=== PATIENT | male | born 1995 | race Caucasian/White ===

== ENCOUNTER 2016-12-21 01:43 | Inpatient (IN) | payer OTHER ==
[~2016-12-21] VITALS: Ht 185.4 cm; Wt 133.8 kg
--- NOTE | 2016-12-21 02:28 | NUR ---
REC'D A 21/M IN RM 7 WITH C/O RUQ PAIN X 4 HOURS. PT REPORTS NAUSEA. PT DESCRIBES THE PAIN INTERMITTENT, STAB-LIKE, AND NONRADIATING. HX OF GALLSTONES. PT AAOX4, RESP E/U. ON CM. CALL LIGHT WITHIN REACH, WILL CONTINUE TO MONITOR.
--- NOTE | 2016-12-21 02:29 | NUR ---
DR CASTANON AT BEDSIDE AT BEDSIDE.
--- NOTE | 2016-12-21 02:36 | NUR ---
MEDICATED PT FOR PAIN. PLEASE SEE EMAR.
[2016-12-21 02:50] LABS: BASOPHIL % 0.6 % (0-2); PLATELET COUNT 305 x10^3mcL (130-400); RED CELL DISTRIBUTION WIDTH 13.8 % (11.5-14.5)
[2016-12-21 02:53] LABS: CALCIUM 8.6 mg/dL (8.5-10.1); CARBON DIOXIDE 29.1 mmol/L (21-32); CHLORIDE SERUM 104 mmol/L (98-107); CREATININE SERUM 0.9 mg/dL (0.7-1.3); GFR1 > 60 mL/min; GLUCOSE SERUM 100 mg/dL (74-106); POTASSIUM SERUM 4.1 mmol/L (3.5-5.1); SODIUM SERUM 139 mmol/L (136-145)
--- NOTE | 2016-12-21 02:54 | NUR ---
US AT BEDSIDE.
[2016-12-21 02:58] LABS: ALBUMIN 3.8 g/dL (3.4-5.0); ALKALINE PHOSPHATASE 134 U/L (46-116); ALT/SGPT 38 U/L (16-63); AST/SGOT 18 U/L (15-37); LIPASE 102 IU/L (73-393); TOTAL PROTEIN, SERUM 7.3 g/dL (6.4-8.2)
--- NOTE | 2016-12-21 04:42 | NUR ---
REPORT GIVEN TO CARMEN BENÍTEZ TO ASSUME CARE OF THE PT.
[2016-12-21 04:57] LABS: CHOLESTEROL/HDL RATIO 4.8; MAGNESIUM 2.1 mg/dL (1.8-2.4); PHOSPHOROUS 4.8 mg/dL (2.5-4.9)
[2016-12-21 05:03] LABS: FREE T4 0.86 ng/dL (0.76-1.46); FREE THYROXINE INDEX 2.1 ug/dL (1.4-4.5); T4(THYROXINE) 6.1 ug/dL (4.7-13.3)
--- NOTE | 2016-12-21 05:16 | NUR ---
REC'D PT FROM ED VIA [facility] ACCOMPANIED BY NURSE AND MOTHER. PT AAOX4, SPEECH CLAR, FOLLOWS COMMANDS. NO SIGNS OF DISTRESS NOTED. TELE 34, SB WITH ELEVATED T WAVE. HR 55. DENIES CP, DIZZINESS, OR PALPITATIONS. PERIPHERAL PULSES PALPABLE. NO EDEMA NOTED. ABD SOFT/ROUND. BOWEL SOUNDS ACTIVE. DENIES ABD PAIN OR N/V. MEDICATED IN ED WITH MORPHINE AND TORADOL. REPORTS TENDERNESS TO RUQ WITH PALPATION. VOIDING FREELY. UA TO BE COLLECTED. AMBULATORY. SKIN INTACT. IV TO LAC PATENT AND INFUSING FLAGYL @ 100 ML/HR. SITE WNL. ORIENTED TO DEVICES AND SURROUNDINGS. CALL LIGHT WITHIN REACH, BED AT LOWEST POSITION. MOTHER AT BEDSIDE. WILL ENDORSE TO DAY NURSE.
[2016-12-21 05:20] VITALS: BP 119/51
[2016-12-21 05:22] LABS: T3 TOTAL 1.2 ng/mL
--- NOTE | 2016-12-21 07:40 | NUR ---
REASSESSMENT DONE. PT DENIES PAIN AT MOMENT. NO NAUSEA, VOMITING. REPORTS COMFORT. IV INFUSING WELL TO LAC #20. CALL LIGHT WITHIN REACH. PARENT AT BEDSIDE.
[2016-12-21 08:57] VITALS: BP 122/50
[2016-12-21 13:14] VITALS: BP 123/54
--- NOTE | 2016-12-21 13:25 | NUR ---
PT SEEN BY SURGEON FOR POSSIBLE SURGERY ON 12/22/16. SURGEON EXPLAINING PLANNED PROCEDURE, MOTHER AT BEDSIDE.
[2016-12-21 16:51] LABS: microscopic required? NO
--- NOTE | 2016-12-21 17:10 | NUR ---
CONSENT TO SURGERY WITNESSED, PT VERBALIZED UNDERSTANDING FOR PROCEDURE.
[2016-12-21 17:12] LABS: UA SPECIFIC GRAVITY >=1.030 (1.005-1.035); urine erythrocyte NEGATIVE (NEGATIVE)
[2016-12-21 17:21] LABS: AMPHETAMINE QUAL UR NONE DETECTED (NEG <=1000)
[2016-12-21 17:40] VITALS: BP 140/50
--- NOTE | 2016-12-21 18:10 | NUR ---
PT SITTING AT BEDSIDE CHAIR. DENIES PAIN AT MOMENT. EFFORTLESS BREATHING. CALL LIGHT WITHIN REACH.
--- NOTE | 2016-12-21 19:36 | NUR ---
RECEIVED PT FROM PREVIOUS SHIFT. AAOX4. TELE #34. DENIES CP/PRESSURE AT THIS TIME. PULSES STRONG BILAT. NO EDEMA NOTED. LUNG SOUNDS CTA. DENIES SOB ON RA. BOWEL SOUNDS ACTIVE X4. PT AMBULATORY. SKIN CDI. IV TO LAC. PATENT AND INTACT. INFUSING WELL. NS @50ML/HR. NO PAIN INDICATED AT THIS TIME. BED IN LOWEST POSITION. CALL LIGHT WITHIN REACH. WILL CONTINUE TO MONITOR.
--- NOTE | 2016-12-21 20:41 | NUR ---
PM SCHEDULED MEDS ADMINISTERED. PT TOLERATED WELL. RESTING IN BED. NO S/S OF DISTRESS. RESPIRATIONS EVEN AND UNLABORED. CALL LIGHT WITHIN REACH. WILL CONTINUE TO MONITOR
[2016-12-21 22:00] VITALS: BP 124/63
--- NOTE | 2016-12-22 01:14 | NUR ---
PT PEACEFULLY RESTING IN BED. RESPIRATIONS EVEN AND UNLABORED. NO S/S OF RESP DISTRESS OR PAIN. IV INFUSING WELL. WILL CONTINUE TO MONITOR.
[2016-12-22 05:44] VITALS: BP 116/42
[2016-12-22 06:25] LABS: BASOPHIL % 0.6 % (0-2); PLATELET COUNT 270 x10^3mcL (130-400); RED CELL DISTRIBUTION WIDTH 13.7 % (11.5-14.5)
[2016-12-22 06:50] LABS: CALCIUM 8.6 mg/dL (8.5-10.1); CHLORIDE SERUM 105 mmol/L (98-107); CREATININE SERUM 0.8 mg/dL (0.7-1.3); GFR1 > 60 mL/min; GLUCOSE SERUM 95 mg/dL (74-106); POTASSIUM SERUM 4.2 mmol/L (3.5-5.1); SODIUM SERUM 142 mmol/L (136-145)
--- NOTE | 2016-12-22 06:54 | NUR ---
PT RESTING PEACEFULLY IN BED. RESPIRATIONS EVEN AND UNLABORED. NO PAIN INDICATED. IV TO LAC PATENT AND INTACT. INFUSING WELL. WILL ENDORSE CARE TO ONCOMING SHIFT
--- NOTE | 2016-12-22 07:00 | NUR ---
PT IS SLEEPING VERY COMFORTABLE. TELE 34. BREATHING EVEN AND UNLABORED. NO RESP DISTRESS OR SOB NOTED. LUNGS CLEAR ON RA. IV TO THE LAC 20G , PATENT AND INTACT. CALL LIGHT IN REACH. WILL CONTINUE PLAN OF CARE.
[2016-12-22 09:36] VITALS: BP 123/61
--- NOTE | 2016-12-22 11:02 | NUR ---
HEPLOCKED PT. VS STABLE. PT BREATHING EVEN AND UNLABORED, NO RESP DISTRESS OR SOB NOTED. PT TAKEN FOR PROCEDURE.
--- NOTE | 2016-12-22 14:10 | NUR ---
PT BACK FROM PROCEDURE. AA/OX4 VS: BP 135/53, 68HR. 18 RESP. TEMP 99.0,. BREATHING EVEN AND UNLABORED. NO RESP DISTRESS OR SOB NOTED. DENIES ANY ABD DISCOMFORT AT TIME. 4 ABD INCISIONS AND 4 BANDAIDS INTACT. RECONNECTED PT TO IV TO THE LAC AT 50 ML/HR. WILL CONTINUE PLAN OF CARE AND MONITOR PT PAIN.
--- NOTE | 2016-12-22 15:31 | NUR ---
PT C/O ABD PAIN 11/01. WILL MEDICATED PER EMAR.
[2016-12-22 17:05] VITALS: BP 126/57
--- NOTE | 2016-12-22 17:29 | NUR ---
PT WAS ABLE TO GET OUT OF BED AND WALK TO THE ELEVATOR AND BACK. PT MOM AND DAD ASSISTED. PT TOLERATED THE WALK WELL.
--- NOTE | 2016-12-22 18:30 | NUR ---
PT IS LAYING IN BED WITH HIS FATHER BY HIS SIDE. PT IS BREATHING EVEN AND UNLABORED ON 2L NC FOR COMFORT. NO RESP DISTRESS OR SOB NOTED. PT IS C/O OF SOME ABD PAIN, WILL MEDICATE PER EMAR. VS STABLE. WILL ENDORSE PT TO INCOMING NURSE.
--- NOTE | 2016-12-22 19:55 | NUR ---
PT CURRENTLY RESTING IN BED, NO ACUTE DISTRESS. A/O X4. TELE #34 SHOWING SINUS RHYTHM, DENIES CHEST PAIN. PULSES PALPABLE IN ALL EXTREMITIES, NO EDEMA NOTED. LUNG SOUNDS CTA BILATERALLY, DENIES SOB. BOWEL SOUNDS ACTIVE, LAST BM 12/20/16. VOIDING WELL. AMBULATORY. ABD BANDAID X4, CDI. C/O ABD PAIN 08/31, WILL MEDICATE PER EMAR. IV PATENT AND INTACT. BED IN LOWEST POSITION, SIDE RAILS UP X2, SCDS IN PLACE, CALL LIGHT WITHIN REACH. WILL CONTINUE TO MONITOR.
[2016-12-22 21:07] VITALS: BP 148/69
--- NOTE | 2016-12-22 23:54 | NUR ---
PT CURRENTLY RESTING IN BED, NO ACUTE DISTRESS. WILL CONTINUE TO MONITOR.
--- NOTE | 2016-12-23 05:40 | NUR ---
PT SLEPT PERIODICALLY THROUGHOUT NIGHT, NO ACUTE DISTRESS. ALL NEEDS MET AND ATTENDED TO. NO SIGNIFICANT CHANGES. IV PATENT AND INTACT. MEDICATED PAIN PER EMAR. BED IN LOWEST POSITION, SIDE RAILS UP X2, SCDS IN PLACE, CALL LIGHT WITHIN REACH. WILL ENDORSE CARE TO ONCOMING NURSE.
[2016-12-23 06:01] VITALS: BP 129/67
[2016-12-23 06:06] LABS: BASOPHIL % 0.2 % (0-2); PLATELET COUNT 296 x10^3mcL (130-400); RED CELL DISTRIBUTION WIDTH 13.5 % (11.5-14.5)
[2016-12-23 06:18] LABS: CALCIUM 8.4 mg/dL (8.5-10.1); CARBON DIOXIDE 28.3 mmol/L (21-32); CHLORIDE SERUM 103 mmol/L (98-107); GFR1 > 60 mL/min; GLUCOSE SERUM 105 mg/dL (74-106); MAGNESIUM 2.1 mg/dL (1.8-2.4); PHOSPHOROUS 5.4 mg/dL (2.5-4.9); POTASSIUM SERUM 4.2 mmol/L (3.5-5.1); SODIUM SERUM 140 mmol/L (136-145)
--- NOTE | 2016-12-23 07:20 | NUR ---
RECEIVED PT IN BED, A/A/O X 4, CALM, COOPERATIVE. ON TELE # 34, SB WITH ELEVATED T-WAVES, HR 58. NO RESPIRATORY DISTRESS, PAIN, OR DISCOMFORT NOTED. ABD SOFT, ROUND, NON-TENDER, NORMOACTIVE BOWEL SOUNDS X 4 QUADS, LAST BM 12/20/16. HAS 4 SURGICAL WOUNDS COVERED WITH BAND-AIDS, CDI. IV SITE TO LAC CDI, RUNNING NS 50 ML/HR. SIDE RAILS UP X 2, BED IN LOW POSITION, CALL LIGHT WITHIN REACH. WILL CONTINUE TO MONITOR.
--- NOTE | 2016-12-23 08:00 | NUR ---
DR RANDLE, RESIDENTS, CHARGE NURSE, AND ASSIGNED NURSE CAME IN TO SEE PT, MOTHER BY BEDSIDE; DR DISCUSSED PLAN OF CARE FOR TODAY, INCLUDING POSSIBLE DISCHARGE HOME TOMORROW. ALL QUESTIONS ANSWERED, PT AND MOTHER VERBALIZED UNDERSTANDING.
[2016-12-23 09:16] VITALS: BP 118/52
--- NOTE | 2016-12-23 09:40 | NUR ---
PT C/O ABD PAIN 08/31, NAUSEA; GIVEN TORADOL 15MG IVP AND ONDANSETRON IVP; RECHECKED BP. 127/61.
[2016-12-23 09:41] VITALS: BP 127/61
--- NOTE | 2016-12-23 11:30 | NUR ---
PT IN BED, WATCHING TV, MOTHER BY BEDSIDE. NO RESPIRATORY DISTRESS, PAIN, OR DISCOMFORT NOTED. WILL CONTINUE TO MONITOR.
[2016-12-23 12:31] VITALS: BP 127/51
--- NOTE | 2016-12-23 13:20 | NUR ---
PT AMBULATED ALONG THE HALLWAY FOR ABOUT 200 FEET. NO RESPIRATORY DISTRESS, PAIN, OR DISCOMFORT NOTED. GAIT AND BALANCE IS UNIMPAIRED. WILL CONTINUE TO MONITOR.
--- NOTE | 2016-12-23 15:40 | NUR ---
PT IN BED, RESTING COMFORTABLY, MOTHER BY BEDSIDE. NO RESPIRATORY DISTRESS, PAIN, OR DISCOMFORT NOTED. WILL CONTINUE TO MONITOR.
[2016-12-23 17:25] VITALS: BP 139/50
--- NOTE | 2016-12-23 17:40 | NUR ---
PT AMBULATED THE HALLWAY FOR ABOUT 200 FT, ACCOMPANIED BY MOTHER. NO RESPIRATORY DISTRESS, PAIN, OR DISCOMFORT. GAIT AND BALANCE UNIMPAIRED. WILL ENDORSE TO NOC SHIFT.
--- NOTE | 2016-12-23 19:51 | NUR ---
AWAKE AND VERBALLY RESPONISVE. ABLE TO MAKE NEEDS KNOWN. DENIES ANY PAIN/DISCOMFORT AT THIS TIME. FAMILY AT BEDSIDE VERY SUPPORTIVE OF PATIENT'S PLAN OF CARE. ENCOURAGED TO CONTINUE TU USE IS QHR X10 , PATIENT COOPERATIVE PLACED CALL LIGHT WITHIN REACH, INSTRUCTED TO CALL FOR ANY ASSISTANCE NEEDED AND VERBALIZED UNDERSTANDING.
[2016-12-23 21:08] VITALS: BP 134/62
--- NOTE | 2016-12-24 00:10 | NUR ---
EYES CLSOED, NO FACIAL GRIAMCING NOTED. RESPRIATION EVEN AND UNLABORED. CALL LIGHT WITHIN REACH. BED IN LOWEST POSITION. KEPT CLEAN AND DRY. WILL CONTINUE TO MONITOR.
[2016-12-24 05:30] VITALS: BP 129/69
[2016-12-24 06:14] LABS: BASOPHIL % 0.3 % (0-2); PLATELET COUNT 252 x10^3mcL (130-400); RED CELL DISTRIBUTION WIDTH 13.8 % (11.5-14.5)
--- NOTE | 2016-12-24 06:31 | NUR ---
C/O SEVERE PAIN AT 0530 ON SCALE 8/10, DILAUDID 2MG GIVEN IVP SCHEDULED MDICATION, TOLERATING WELL. PATIENT CLAIMED TOTLA RELIEF POST PAIN MEDICATION. PAIN LEVEL 0/10.APPARENTLY COMFORTABLE IN BED AT THIS TIME. ALL NEEDS ATTENDED.
[2016-12-24 06:40] LABS: CALCIUM 8.4 mg/dL (8.5-10.1); CARBON DIOXIDE 30.3 mmol/L (21-32); CHLORIDE SERUM 106 mmol/L (98-107); CREATININE SERUM 0.8 mg/dL (0.7-1.3); GFR1 > 60 mL/min; GLUCOSE SERUM 90 mg/dL (74-106); POTASSIUM SERUM 4.2 mmol/L (3.5-5.1); SODIUM SERUM 144 mmol/L (136-145)
--- NOTE | 2016-12-24 07:15 | NUR ---
AAO X4.DENIES ANY PAIN/DISCOMFORT.LUNGS CLEAR.ON SR-SB ON THE MONITOR.IVF NS GOING AT 50 ML/HR INFUSING WELL.ABD'L INCISSION X3 WITH JACKIE OPEN TO AIR.S/P LAP PEREZ.BOWEL SOUNDS ACTIVE.CLAIMS BEEN PASSING GAS BUT NO BM YET.CALL LIGHT WITHIN REACH.INSTRUCTED TO CALL FOR ANY PAIN/DISCOMFORT.WILL CONTINUE TO MONITOR PT.
--- NOTE | 2016-12-24 08:20 | NUR ---
AND MEDICINE TEAM AT BEDSIDE.INFORMED PT ABOUT THE PLAN OF CARE.PT WILL GO HOME TODAY AND TO FOLLOW-UP WITH THE SURGEON.
[2016-12-24 08:50] VITALS: BP 122/49
[2016-12-24] MEDS ORDERED: APAP/HYDROCODON1 T13 PO (11:54)
[2016-12-24 11:57] VITALS: BP 122/49
--- NOTE | 2016-12-24 12:19 | NUR ---
PT C/O BRONSON 07/01, MEDICATED WITH TYLENOL PO ORDERED. PT ASSITED TO BR AT THIS TIME.
--- NOTE | 2016-12-24 13:22 | NUR ---
PT D/C TO HOME.IV AND MONITOR D/C'D.RX AND D/C INSTRUCTION GIVEN.PT VERBALIZES UNDERSTANDING.AWAIITNG FOR ANGEL TO COME LARD TUB WASHER PT.
--- NOTE | 2016-12-24 14:27 | NUR ---
MOTHER HERE TO FINE ARTS TEACHER PT.WENT DOWN VIA WHEELCHAIR ACOMPANIED BY MOTHER AND DIESEL SCOOP OPERATOR.
== END 2016-12-24 14:31 | disposition home or self-care (01) | DRG 263 ==
LOC: ED 01:43 → DU 04:08
PROVIDERS: Emergency Medicine; Surgery; ADMIT Family Medicine
PROC: 0FT44ZZ Resection of Gallbladder, Percutaneous Endoscopic Approach (ICD-10-PCS; principal; 2016-12-22 12:50)
DX: K80.00 Calculus of gallbladder with acute cholecystitis without obstruction (principal); E83.39 Other disorders of phosphorus metabolism; E78.2 Mixed hyperlipidemia; E83.51 Hypocalcemia; E66.9 Obesity, unspecified; D72.829 Elevated white blood cell count, unspecified
CPT/HCPCS: 83880; 84439; J0330; J0690; J0696; J1170; J1885; J2250; J2270; J2405; J2704; J2710; J3010; J3490; J7030; J7120; Q0092

== ENCOUNTER 2016-12-29 16:18 | Inpatient (IN) | payer OTHER ==
[~2016-12-29] VITALS: Ht 185.4 cm; Wt 127.5 kg
[~2016-12-29 16:18] MED LIST: APAP/HYDROCODON1 T13 PO
--- NOTE | 2016-12-29 16:55 | NUR ---
PT TO WAIT IN LOBBY DUE TO NO BEDS AVAILIBLE AT THIS TIME. PT IN STABLE CONDITION. RESP EVEN AND UNLABORED, RA. VS STABLE.
--- NOTE | 2016-12-29 17:46 | NUR ---
PT BIB FAMILY C/C ABD PAIN WITH NAUSEA STS PAIN STARTED THIS AM STS WAS SEEN BY PMD THIS AM AND WAS GIVEN RX FOR PO ATB PAIN MEDS STS STARTED MEDS AT 2PM AWAITING FOR DR MIA QUEZADA
--- NOTE | 2016-12-29 18:46 | NUR ---
PLEASE ENTER FULL NAMES OF BROACH TROUBLE SHOOTER/RN Patient data collected by (BROACH TROUBLE SHOOTER):TALIB DOE Assessment reviewed and completed by (RN):ROCIO CUI
--- NOTE | 2016-12-29 18:48 | NUR ---
PURPLE SEPSIS CHECKLIST INITIATED.
[2016-12-29 19:09] LABS: BASOPHIL % 0.6 % (0-2); PLATELET COUNT 312 x10^3mcL (130-400); RED CELL DISTRIBUTION WIDTH 13.4 % (11.5-14.5)
[2016-12-29 19:11] LABS: UA SPECIFIC GRAVITY 1.025 (1.005-1.035); microscopic required? YES; urine erythrocyte 2+ (NEGATIVE)
[2016-12-29 19:17] LABS: CALCIUM 8.7 mg/dL (8.5-10.1); CARBON DIOXIDE 28.9 mmol/L (21-32); CHLORIDE SERUM 101 mmol/L (98-107); CREATININE SERUM 0.9 mg/dL (0.7-1.3); GFR1 > 60 mL/min; GLUCOSE SERUM 99 mg/dL (74-106); POTASSIUM SERUM 4.1 mmol/L (3.5-5.1); SODIUM SERUM 138 mmol/L (136-145)
[2016-12-29 19:22] LABS: ALBUMIN 3.7 g/dL (3.4-5.0); ALKALINE PHOSPHATASE 105 U/L (46-116); ALT/SGPT 45 U/L (16-63); AMYLASE 32 U/L (25-115); AST/SGOT 13 U/L (15-37); BILIRUBIN TOTAL 0.93 mg/dL (0.20-1.00); LIPASE 81 IU/L (73-393); TOTAL PROTEIN, SERUM 7.9 g/dL (6.4-8.2)
[2016-12-29 19:24] LABS: AMPHETAMINE QUAL UR NONE DETECTED (NEG <=1000)
[2016-12-29] MEDS ORDERED: KEFLEX500 M1 (19:37)
[2016-12-29] MEDS ORDERED: ZOFRAN8 MG (19:38)
[2016-12-29] MEDS ORDERED: CODEINE (19:40)
[2016-12-29] MEDS ORDERED: APAP (19:40)
--- NOTE | 2016-12-29 19:57 | NUR ---
RESIDENT AT BS FOR ADMIT EXAM. PT VERB ACCEPTABLE LEVEL OF COMFORT ALTHOUGH MOVEMENT VERY GUARDED. 6CM HORIZONTAL INCISION W/JACKIE NOTED. NO DRAINAGE OR REDNESS. MRSA SWAB OBTAINED. PENDING TRANSPORT TO UNIT.
--- NOTE | 2016-12-29 20:26 | NUR ---
REC'D PT FROM ER VIA [facility]. PT IS AAOX4. TELE #15 SR. RESP EVEN AND UNLABORED. NO SOB NOTED. ABD SOFT. BS ACTIVE X4. DENIES ABD PAIN OR N/V. 4X INCISION WITH JACKIE NOTED TO ABD. PT HAD LAP APPY 1 WK AGO. IV NOTED TO RAC. INTACT AND PATENT. ORIENTED PT TO CALL LIGHT. BED IN LOWEST POSITION. WILL ENDORSE TO PRIMARY RN.
[2016-12-29 20:35] VITALS: BP 128/56
[2016-12-29 20:57] LABS: T3 TOTAL 0.86 ng/mL
[2016-12-29 21:00] LABS: FREE T4 1.09 ng/dL (0.76-1.46); FREE THYROXINE INDEX 2.7 ug/dL (1.4-4.5); T4(THYROXINE) 7.4 ug/dL (4.7-13.3)
[2016-12-29 21:07] LABS: MAGNESIUM 2.1 mg/dL (1.8-2.4); PHOSPHOROUS 4.6 mg/dL (2.5-4.9)
[2016-12-29 21:09] LABS: CHOLESTEROL/HDL RATIO 3.4
[2016-12-29 21:32] VITALS: BP 128/56
--- NOTE | 2016-12-30 04:08 | NUR ---
PT HAS FEVER 100.8, TYLENOL IS GIVEN AND APPLIED THE COOLING MEASURE, DR. HERR MADE AWARE, WILL CONTINUE TO MONITOR THE PT.
--- NOTE | 2016-12-30 05:19 | NUR ---
PT IS AWAKE AND VERBAL RESPONSIVE, DENY ANY RESPIRATORY DISTRESS, DENY ANY PAIN AT THIS MOMENT. IV AT RIGHT AC, NO LEAKING, NO INFILTRAITON. WILL CONTINUE TO MONITOR THE PT.
[2016-12-30 05:24] VITALS: BP 135/54
--- NOTE | 2016-12-30 06:00 | NUR ---
PT'S TEMP IS 99.7, CONTINUE ON COOLING MEASURE AND WILL CONTINUE TO MONITOR.
--- NOTE | 2016-12-30 06:50 | NUR ---
TALKED TO DR. HERR REGARDING REQUEST BLOOD CULTURE, DR. HERR MADE AWARE WILL CONTINUE TO MONITOR THE PT.
--- NOTE | 2016-12-30 07:35 | NUR ---
PT LAYING IN BED, A/OX4. NO REPORT OF PAIN. NO SIGN OF ACUTE DISTRESS. MOTHER AT BEDSIDE. ABDOMINAL INCISIONS VY, NO DRAINAGE, NO REPORT OF PAIN AT SITES. S1S2 REGULAR RATE/RHYTHM. LUNGS CTA BILATERALLY ON ROOM AIR. BOWEL SOUNDS ACTIVE. BED IN LOW POSITION. IV FLUIDS FLOWING. CALL LIGHT WITHIN REACH. WILL CONTINUE TO MONITOR.
[2016-12-30 08:40] VITALS: BP 130/63
--- NOTE | 2016-12-30 12:05 | NUR ---
PT LAYING IN BED. NO REPORT OF PAIN. NO SIGN OF ACUTE DISTRESS. IV FLUIDS FLOWING. BED IN LOW POSITION. CALL LIGHT WITHIN REACH. WILL CONTINUE TO MONITOR.
[2016-12-30 12:45] VITALS: BP 117/49
--- NOTE | 2016-12-30 13:53 | NUR ---
PT TAKEN TO RADIOLOGY. NO REPORT OF PAIN. NO SIGN OF ACUTE DISTRESS.
[2016-12-30 16:18] VITALS: BP 120/67
--- NOTE | 2016-12-30 18:49 | NUR ---
PT LAYING IN BED. A/OX4. NO REPORT OF PAIN. NO SIGN OF ACUTE DISTRESS. FAMILY AT BEDSIDE. IV REMOVED, CATHETER IN TACT. IV INSERTED TO RH 20 GAUGE. IV FLUIDS FLOWING. BED IN LOW POSITION. CALL LIGHT WITHIN REACH. WILL ENDORSE TO ONCOMING SHIFT.
--- NOTE | 2016-12-30 19:06 | NUR ---
AOX4. FAMILY AT BEDSIDE. TELE #15, NSR. LUNGS CLEAR ON RA. PULSES PALPABLE, NO EDEMA. BOWEL SOUNDS ACTIVE. 4 ABD INCISIONS NOTED, JACKIE VY. NO REDNESS OR SWELLING. DENIES PAIN AT THIS TIME. NS @ 100 ML/HR TO RIGHT HAND. BED IN LOW POSITION, CALL LIGHT IN REACH. INSTRUCTED TO CALL FOR ASSSITANCE.
--- NOTE | 2016-12-30 19:10 | NUR ---
NURSING CO-SIGN THE DOCUMENTATION ENTERED BY THE RN MANDEEP HAS BEEN REVIEWED. REVIEWED/CO-SIGNED BY: Corry Casillas DOCUMENTATION DONE BY:AKUA NAPIER
[2016-12-30 21:02] VITALS: BP 147/76
[2016-12-31 05:04] VITALS: BP 126/65
[2016-12-31 06:04] LABS: BASOPHIL % 0.3 % (0-2); PLATELET COUNT 278 x10^3mcL (130-400); RED CELL DISTRIBUTION WIDTH 13.7 % (11.5-14.5)
[2016-12-31 06:18] LABS: CALCIUM 8.7 mg/dL (8.5-10.1); CARBON DIOXIDE 28.5 mmol/L (21-32); CHLORIDE SERUM 106 mmol/L (98-107); CREATININE SERUM 0.9 mg/dL (0.7-1.3); GFR1 > 60 mL/min; GLUCOSE SERUM 85 mg/dL (74-106); POTASSIUM SERUM 3.9 mmol/L (3.5-5.1); SODIUM SERUM 142 mmol/L (136-145)
--- NOTE | 2016-12-31 06:39 | NUR ---
PT TRANSFERRED FROM OBSERVATION TO INPATIENT. NO ACUTE CHANGES DURING SHIFT. WILL ENDORSE TO ONCOMING RN.
--- NOTE | 2016-12-31 07:45 | NUR ---
PATIENT LAYING IN BED, A/OX4. MOTHER AT BEDSIDE. NO REPORT OF PAIN. NO SIGN OF ACUTE DISTRESS. BOWEL SOUNDS ACTIVE, PASSING GAS. NO REPORT OF ABDOMINAL PAIN. ABDOMEN SOFT, FLAT, NON-DISTENDED. 4 ABDOMINAL INCISIONS WITH JACKIE VY, NO DRAINAGE, NO FOUL ODOR, NO REPORT OF PAIN AT SITES. S1S2 REGULAR RATE/RHYTHM. LUNG SOUNDS CTA BILATERALLY ON ROOM AIR. IV FLUIDS FLOWING. BED IN LOW POSITION. CALL LIGHT WITHIN REACH. WILL CONTINUE TO MONITOR.
--- NOTE | 2016-12-31 09:00 | NUR ---
AM ROUNDS DONE BY DR. RIGGINS AND MEDICAL TEA,. PLAN TO CONT. WITH CURRENT ANTIBIOTIC TX. PT AGREED WITH PLAN.
[2016-12-31 09:17] VITALS: BP 135/67
--- NOTE | 2016-12-31 11:48 | NUR ---
PT LAYING IN BED. A/OX4. NO REPORT OF PAIN. NO SIGN OF ACUTE DISTRESS. IV FLUIDS FLOWING. BED IN LOW POSITION. CALL LIGHT WITHIN REACH. WILL CONTINUE TO MONITOR.
[2016-12-31 13:20] VITALS: BP 120/61
[2016-12-31 17:12] VITALS: BP 123/69
--- NOTE | 2016-12-31 18:05 | NUR ---
PATIENT LAYING IN BED. AMBULATED IN HALLWAY. TOLERATED ACTIVITY WELL. NO SOB. A/OX4. SHOWERED PER DR. MENDOZA'S ORDER. NO REPORT OF PAIN. NO SIGN OF ACUTE DISTRESS. NO COMPLAINT OF ABDOMINAL PAIN. INCISIONAL WOUNDS WITH JACKIE TO ABDOMEN CLEAN AND DRY. NO FOUL DRAINAGE. IV FLUIDS FLOWING. BED IN LOW POSITION. CALL LIGHT WITHIN REACH. WILL ENDORESE TO ONCOMING SHIFT.
--- NOTE | 2016-12-31 18:47 | NUR ---
NURSING CO-SIGN THE DOCUMENTATION ENTERED BY THE RN MANDEEP HAS BEEN REVIEWED. REVIEWED/CO-SIGNED BY: Corry Casillas DOCUMENTATION DONE BY:NURA FATIMA
[2016-12-31 21:41] VITALS: BP 130/70
--- NOTE | 2016-12-31 22:33 | NUR ---
PT C/O PAIN TO RIGHT FA IV. IV D/C INTACT. NEW ACCESS ESTABLISHED TO RIGHT HAND, 20G.
--- NOTE | 2016-12-31 22:49 | NUR ---
PT C/O PAIN TO RIGHT FA IV. IV D/C INTACT. NEW ACCESS ESTABLISHED TO LEFT HAND, 20G.
[2017-01-01 05:47] VITALS: BP 113/61
--- NOTE | 2017-01-01 06:05 | NUR ---
NO ACUTE CHANGES DURING SHIFT. WILL ENDORSE TO ONCOMING RN.
[2017-01-01 06:21] LABS: CALCIUM 8.8 mg/dL (8.5-10.1); CARBON DIOXIDE 29.4 mmol/L (21-32); CHLORIDE SERUM 106 mmol/L (98-107); CREATININE SERUM 0.8 mg/dL (0.7-1.3); GFR1 > 60 mL/min; GLUCOSE SERUM 86 mg/dL (74-106); POTASSIUM SERUM 4.3 mmol/L (3.5-5.1); SODIUM SERUM 143 mmol/L (136-145)
[2017-01-01 06:39] LABS: BASOPHIL % 0.4 % (0-2); PLATELET COUNT 301 x10^3mcL (130-400); RED CELL DISTRIBUTION WIDTH 13.1 % (11.5-14.5)
--- NOTE | 2017-01-01 07:15 | NUR ---
AAO X4.DENIES ANY PAIN/DISCOMFORT.LUNGS CLEAR.PT NON-TELE.IVF NS GOING AT 100 ML/HR INFUSING WELL.ABD'L INCISSION X4 WITH JACKIE CDI.S/P LAP PEREZ ON 12/22.CALL LIGHT WITHIN REACH.INSTRUCTED TO CALL FOR ANY PAIN/DISCOMFORT.WILL CONTINUE TO MONITOR PT.
--- NOTE | 2017-01-01 08:13 | NUR ---
AND MEDICINE TEAM AT BEDSIDE.INFORMED PT ABOUT THE PLAN OF CARE.WILL GO HOME TODAY.SO FAR PT HAS HAD NO FEVER AND LABS WERE OK.WILL BE ON ANTIBIOTICSFOR 7-10 DAYS.WILL REPEAT.US ABD.
[2017-01-01 09:50] VITALS: BP 139/77
[2017-01-01] MEDS ORDERED: FLA500 PO (09:57)
[2017-01-01] MEDS ORDERED: LAC PO (09:58)
[2017-01-01] MEDS ORDERED: LEVOFLOXACIN500 M1 PO (09:59)
[2017-01-01 11:04] VITALS: BP 139/77
--- NOTE | 2017-01-01 14:04 | NUR ---
TOOK JACKIE OFF PT'S INCISSION ORDERED BY .PT TOLERATED IT WELL.
--- NOTE | 2017-01-01 15:15 | NUR ---
PT D/C TO HOME .IV D/C'D.DISCHARGE INSTRUCTION GIVEN PT VERBALIZES UNDERSTANDING.WENT DOWN VIA WHEELCHAIR ACCOMPANIED BY MOM AND SECOND WORKER.
== END 2017-01-01 17:00 | disposition home or self-care (01) | DRG 721 ==
LOC: ED 16:18 → DU 18:58 → MU 01-01 05:44
PROVIDERS: Emergency Medicine; ADMIT Family Medicine Sports Medicine
DX: T81.4XXA Infection following a procedure, initial encounter (principal); A41.9 Sepsis, unspecified organism; K29.80 Duodenitis without bleeding; E02 Subclinical iodine-deficiency hypothyroidism; R00.0 Tachycardia, unspecified; E66.9 Obesity, unspecified; R31.9 Hematuria, unspecified; Z90.49 Acquired absence of other specified parts of digestive tract; Z87.891 Personal history of nicotine dependence
CPT/HCPCS: 78226; 83880; 84439; A9537; C9113; J1885; J2405; J2543; J7030; Q0092; Q9967

== ENCOUNTER 2017-02-15 21:35 | Emergency (ER) | payer OTHER ==
[~2017-02-15] VITALS: Ht 182.9 cm; Wt 129.7 kg
[~2017-02-15 21:35] MED LIST changes: +APAP; +CODEINE; +FLA500 PO; +KEFLEX500 M1; +LAC PO; +LEVOFLOXACIN500 M1 PO; +ZOFRAN8 MG
[2017-02-15 22:21] VITALS: Ht 182.9 cm; Wt 129.7 kg
[2017-02-16 02:04] LABS: CALCIUM 8.6 mg/dL (8.5-10.1); CARBON DIOXIDE 29.2 mmol/L (21-32); CHLORIDE SERUM 101 mmol/L (98-107); CREATININE SERUM 1.2 mg/dL (0.7-1.3); GFR1 > 60 mL/min; GLUCOSE SERUM 142 mg/dL (74-106); POTASSIUM SERUM 4.2 mmol/L (3.5-5.1); SODIUM SERUM 139 mmol/L (136-145)
[2017-02-16 02:09] LABS: ALBUMIN 3.9 g/dL (3.4-5.0); ALKALINE PHOSPHATASE 113 U/L (46-116); ALT/SGPT 50 U/L (16-63); AMYLASE 39 U/L (25-115); AST/SGOT 20 U/L (15-37); BILIRUBIN TOTAL 0.8 mg/dL (0.20-1.00); LIPASE 91 IU/L (73-393); TOTAL PROTEIN, SERUM 7.5 g/dL (6.4-8.2)
[2017-02-16 02:16] LABS: PLATELET COUNT 294 x10^3mcL (130-400); RED CELL DISTRIBUTION WIDTH 13.8 % (11.5-14.5)
[2017-02-16 02:18] LABS: BASOPHIL % 0 % (0-2)
[2017-02-16 03:51] LABS: AMPHETAMINE QUAL UR NONE DETECTED (NEG <=1000)
[2017-02-16 04:06] VITALS: BP 126/69
== END 2017-02-16 04:06 | disposition home or self-care (01) ==
LOC: ED 21:35
PROVIDERS: Emergency Medicine
DX: R10.13 Epigastric pain (principal); R11.10 Vomiting, unspecified; R19.7 Diarrhea, unspecified; Z90.49 Acquired absence of other specified parts of digestive tract
CPT/HCPCS: 83880; J2405; J3010; J7030

== ENCOUNTER 2017-04-05 01:41 | Emergency (ER) | payer OTHER ==
[~2017-04-05] VITALS: Ht 182.9 cm; Wt 127.5 kg
[2017-04-05 01:45] VITALS: Ht 182.9 cm; Wt 127.5 kg
[2017-04-05 02:34] LABS: BASOPHIL % 0.5 % (0-2); PLATELET COUNT 291 x10^3mcL (130-400); RED CELL DISTRIBUTION WIDTH 13.8 % (11.5-14.5)
[2017-04-05 02:45] LABS: CALCIUM 8.7 mg/dL (8.5-10.1); CARBON DIOXIDE 26.1 mmol/L (21-32); CHLORIDE SERUM 105 mmol/L (98-107); CREATININE SERUM 0.8 mg/dL (0.7-1.3); GFR1 > 60 mL/min; GLUCOSE SERUM 104 mg/dL (74-106); POTASSIUM SERUM 3.6 mmol/L (3.5-5.1); SODIUM SERUM 141 mmol/L (136-145)
[2017-04-05 02:50] LABS: ALBUMIN 3.7 g/dL (3.4-5.0); ALKALINE PHOSPHATASE 104 U/L (46-116); ALT/SGPT 39 U/L (16-63); AST/SGOT 14 U/L (15-37); BILIRUBIN TOTAL 0.44 mg/dL (0.20-1.00); TOTAL PROTEIN, SERUM 7.2 g/dL (6.4-8.2)
[2017-04-05 04:10] VITALS: BP 134/69
== END 2017-04-05 04:10 | disposition home or self-care (01) ==
LOC: ED 01:41
PROVIDERS: Emergency Medicine
DX: R07.89 Other chest pain (principal); I10 Essential (primary) hypertension
CPT/HCPCS: 83880; 85378; J1885; J2270; J2405; Q0092